=== PATIENT | female | born 2005 | race Caucasian/White ===

== ENCOUNTER 2024-05-23 10:33 | Outpatient (CLI) | payer OTHER, SELFPAY | END 2024-05-23 10:34 | disposition home or self-care (01) | LOC: NFLDREF 05-25 12:33 | PROVIDERS: Visit Provider Physician Assistant | DX: N39.0 Urinary tract infection, site not specified (principal) | CPT/HCPCS: 87086; 87186 ==

== ENCOUNTER 2025-05-19 09:04 | Outpatient (CLI) | payer OTHER, SELFPAY | END 2025-05-19 09:05 | disposition home or self-care (01) | LOC: NFLDUCREF 09:10 | PROVIDERS: Visit Provider Family Medicine | DX: N39.0 Urinary tract infection, site not specified (principal) | CPT/HCPCS: 87086 ==